=== PATIENT | female | born 2000 | race Caucasian/White ===

== ENCOUNTER 2023-05-26 07:01 | Inpatient (IN) | payer BC ==
[2023-05-26 07:30] VITALS: BMI 24.3
[2023-05-26] MEDS ORDERED: Lidocaine 2% MPF 10 ML AMP (For Epidural Use) ONE (08:00)
[2023-05-26] MEDS ORDERED: Bupivacaine 0.25% HCL 30 ML VIAL ONE (08:00)
[2023-05-26] MEDS ORDERED: hydrALAZINE 20 MG/ML VIAL SLOW IVP PRN ×2 (08:07→18:10)
[2023-05-26] MEDS ORDERED: Misoprostol 200 MCG TAB PR PRN (08:07)
[2023-05-26] MEDS ORDERED: Ibuprofen 800 MG TAB PO PRN (08:07)
[2023-05-26] MEDS ORDERED: Promethazine HCl 25 MG/ML VIAL IM PRN ×2 (08:07→10:31)
[2023-05-26] MEDS ORDERED: HYDROcodone/Acetaminophen 5/325 mg Tablet PO PRN ×4 (08:07→18:10)
[2023-05-26] MEDS ORDERED: Methylergonovine 0.2 MG/ML VIAL IM PRN (08:07)
[2023-05-26] MEDS ORDERED: Lactated Ringer's 1,000 ML IV PRN (08:07)
[2023-05-26] MEDS ORDERED: fentaNYL 50 mcg/mL 1 mL Vial SLOW IVP PRN (08:07)
[2023-05-26] MEDS ORDERED: Lidocaine 1% (PF) 30 ML VIAL SC PRN (08:07)
[2023-05-26] MEDS ORDERED: Oxytocin 30 units/NS 500 ML 500 ML IV SCH ×2 (08:15→18:10)
[2023-05-26 08:30] LABS: Hematocrit 41.6 % (34.9-44.5); Hemoglobin 14.2 g/dL (12.0-15.5); Mean Corpuscular HGB CONC 34.1 g/dL (32.0-36.0); Mean Corpuscular Hemoglobin 31.1 pg (27.0-33.0); Mean Platelet Volume 12.1 fl (7.4-10.4); Platelet Count 202 10x3/uL (150-450); RBC Distribution Width 11.9 % (11.5-14.5); Red Blood Cell (RBC) Count 4.57 10x6/uL (3.90-5.03); White Blood Cell (WBC) Count 9.9 10x3/uL (3.5-10.5)
[2023-05-26 09:01] LABS: HBSAg Index 0.23 S/CO (0-0.99); Hep B Surf Ag - L&D Non-Reactive S/CO (NonReactive)
[2023-05-26 09:02] LABS: Syphilis Antibody Nonreactive (Nonreactive); Syphilis Antibody Index 0.05 S/CO (<1.00 Non-Reactive)
[2023-05-26] MEDS: Ondansetron PF 4 MG/2 ML Vial IVP PRN (09:16)
[2023-05-26] MEDS: fentaNYL/Ropivacaine Epidural 100 ML ONE (09:54)
[2023-05-26] MEDS ORDERED: diphenhydrAMINE 50 MG/ML VIAL IVP PRN (10:31)
[2023-05-26] MEDS ORDERED: Moisturizing Cream (Eucerin) 113 GM JAR TOP PRN (10:31)
[2023-05-26] MEDS ORDERED: Acetaminophen 325 MG TAB PO PRN (10:31)
[2023-05-26] MEDS ORDERED: Ondansetron PF 4 MG/2 ML Vial IVP PRN (10:31)
[2023-05-26] MEDS ORDERED: ePHEDrine Sulfate 50 MG/10 ML VIAL SLOW IVP PRN (10:31)
[2023-05-26] MEDS ORDERED: Lactated Ringer's 500 ML IV PRN (10:31)
[2023-05-26] MEDS ORDERED: Naloxone HCl 0.4 mg/ml Vial IVP PRN ×2 (10:31)
[2023-05-26] MEDS ORDERED: fentaNYL 2 mcg/Ropivacaine 0.2% Epidural 100 ML CADD EPIDURAL SCH (10:45)
[2023-05-26] MEDS ORDERED: Communication Order-Pharmacy FS SCH (10:45)
[2023-05-26] MEDS ORDERED: Misoprostol 200 MCG TAB VAG PRN (18:10)
[2023-05-26] MEDS ORDERED: Benzocaine-Menthol 82.5 ML CAN TOP PRN (18:10)
[2023-05-26] MEDS ORDERED: Bisacodyl 10 MG SUPP PR PRN (18:10)
[2023-05-26] MEDS ORDERED: Lanolin Ointment 7 GM TUBE TOP PRN (18:10)
[2023-05-26] MEDS ORDERED: Ferrous Sulfate 325 MG TAB PO SCH (18:10)
[2023-05-26] MEDS ORDERED: Boostrix 0.5 ML (Tdap) VIAL (>/=7 yrs of age) IM ONE (18:10)
[2023-05-26] MEDS ORDERED: Milk Of Magnesia 30 ML UDCUP PO PRN (18:10)
[2023-05-26] MEDS: Docusate 100 MG CAP PO SCH (22:00)
[2023-05-26] MEDS: Ibuprofen 800 MG TAB PO SCH (22:01)
[2023-05-27 07:36] VITALS: TEMP 98.7
[2023-05-27] MEDS: Prenatal Vitamin 1 TAB PO SCH (07:37)
[2023-05-27] MEDS: Ferrous Sulfate 325 MG TAB PO SCH (08:47)
[2023-05-27 12:00] VITALS: BP 131/79
== END 2023-05-27 15:25 | disposition home or self-care (01) | DRG 807 ==
LOC: CSHLD/OP 07:01 → CSHLD 07:53 → CSHPP 17:42
PROVIDERS: ADMIT Obstetrics & Gynecology; ATTEND Obstetrics & Gynecology
PROC: 10E0XZZ Delivery of Products of Conception, External Approach (ICD-10-PCS; principal; 2023-05-26)
DX: O80 Encounter for full-term uncomplicated delivery (principal); Z37.0 Single live birth; Z3A.38 38 weeks gestation of pregnancy
CPT/HCPCS: 36415; 51702; 85027; 86780; 86850; 86900; 86901; 87340; 99285; J0665; J2405